=== PATIENT | male | born 1985 | race American Indian/Alaskan Native ===

== ENCOUNTER 2021-04-07 06:54 | Emergency (ER) | payer SELFPAY ==
--- NOTE | 2021-04-07 08:08 | Emergency Department Report ---
Chief Complaint: Extremity Injury, Upper Stated Complaint: RT HAND PAIN Time Seen by Provider: 04/07/21 08:03 - HPI History of Present Illness: The patient was evaluated in the emergency department for symptoms described in the history of present illness. He/she was evaluated in the context of the global COVID-19 pandemic, which necessitated consideration that the patient might be at risk for infection with the virus that causes COVID-19. Institutional protocols and algorithms that pertain to the evaluation of patients at risk for COVID-19 are in a state of rapid change based on information released by regulatory bodies including the CDC and federal and state organizations. These policies and algorithms were followed during the patient's care in the emergency department. Please note that these policies, procedures and recommendations changed on a rapid basis. 36-year-old -[place] male presents to the emergency room stating that he jammed his right third finger a week and a half ago. Patient states that is painful but has taken nothing for the pain. Patient reports he does not able to bend it but on my examination patient is able to bend his finger without any difficulties. Patient denies any past medical history reports he has no known drug allergies and is not vaccinated. - Exam Physical Exam: General: Awake, appropriately interactive, no acute distress. Neck: Supple. Full range of motion intact. Cardiovascular: Normal peripheral perfusion. Pulmonary: No respiratory distress. Patient is speaking normally without use of accessory muscles. Skin: No apparent rashes or lesions. Neurological: No facial asymmetry. Speech is clear. Follows commands. Patient is alert and oriented. Musculoskeletal: Full range of motion, no crepitus. No tenderness to palpate nonerythematous no edema test appreciated. Able to bear weight and ambulate without difficulty. Distal neurovascular and motor/sensory function is intact. Right hand full range of motion third finger proximal joint enlarged but no swelling full range of motion able to extend and flex fully. Psych: Cooperative. Appropriate mood and affect. MSE screening note: Focused history and physical exam performed. Due to findings the following was ordered: 36-year-old -[place] male presents to the emergency room stating that he jammed his right third finger a week and a half ago. Patient states that is painful but has taken nothing for the pain. Patient reports he does not able to bend it but on my examination patient is able to bend his finger without any difficulties. Patient denies any past medical history reports he has no known drug allergies and is not vaccinated. Discussed with patient that he has full range of motion of his finger there is no swelling there is no deformity there is no redness and no warmth. Patient recommend to take Tylenol, Motrin or Aleve. ED Disposition for MSE Disposition: 01 HOME / SELF CARE / HOMELESS Is pt being admited?: No Does the pt Need Aspirin: No Condition: Stable Instructions: Jammed Finger Additional Instructions: Tylenol ibuprofen or Aleve for pain management. Referrals: JAYCOB MOSLEY MD [Staff Physician] - 3-5 Days Forms: Work/School Release Form(ED) Time of Disposition: 08:09
== END 2021-04-07 08:40 | disposition home or self-care (01) ==
LOC: ED 06:54
DX: M79.644 Pain in right finger(s) (principal); W23.0XXA Caught, crushed, jammed, or pinched between moving objects, initial encounter; Y93.89 Activity, other specified; Y92.89 Other specified places as the place of occurrence of the external cause; Y99.8 Other external cause status
CPT/HCPCS: 99282